=== PATIENT | female | born 1965 | race Caucasian/White ===

== ENCOUNTER 2016-04-05 13:07 | Day surgery (SDC) | payer OTHER ==
[~2016-04-05] VITALS: Ht 160 cm; Wt 77.1 kg
[~2016-04-05 13:07] MED LIST: 0.9% Sodium Chloride 1,000 ML IV SCH; Sodium Chloride LOK Flush 10 mL Syringe IV PRN; fentaNYL-PF 50 mCg/mL 2 mL Inj IVPUSH PRN
[2016-04-05 13:39] VITALS: BP 129/86; PULSE 59; RESP 16; O2SAT 98
[2016-04-05] MEDS ORDERED: IBUP-1827 PO (13:44)
[2016-04-05 16:20] VITALS: BP 110/63; PULSE 50; RESP 15; O2SAT 98
[2016-04-05 16:31] VITALS: BP 109/61; PULSE 48; RESP 15; O2SAT 98
--- NOTE | 2016-04-05 16:38 | ENDO ---
[address] [address] ENDOSCOPY PROCEDURE PATIENT: BLADIMIR GILMAN : 1965 MR#: [id number] ADMIT: 04/05/2016 JOB ID: [id number] PRIMARY PROVIDER: Steph Marroquin PA-C. PROCEDURE: Colonoscopy. INDICATIONS: A 50-year-old female reports for colon cancer screening. EQUIPMENT: PCF H180 AL. SEDATION: 4 mg Versed and 25 mcg fentanyl. COMPLICATIONS: None identified. BOWEL PREPARATION: Fair. PROCEDURE IN DETAIL: After the risks and benefits were explained, written and verbal informed consent was obtained. The patient was brought into the endoscopy suite and placed into the left lateral decubitus position. Sedation was achieved using the above-stated medications with the addition of oxygen via nasal cannula. A digital rectal examination was accomplished. No significant pathology appreciated. The scope was introduced into the rectum and advanced under direct visualization to the level of the cecum, as identified by the appendiceal orifice and ileocecal valve. The scope was slowly withdrawn to carefully examine the mucosa for any defects or lesions. Retroflexed views were avoided in the rectum. Multiple direct views were made through the dentate line for exclusion of pathology. The colon was decompressed, the scope removed the patient who tolerated the procedure well. FINDINGS: Copious amounts of irrigation and suction were required for an adequate mucosal exam. Within the limitations of bowel prep, I did not see any significant polyps, mass lesions, or inflammatory features identified throughout. ENDOSCOPIC DIAGNOSIS: Visually unremarkable colonoscopy to cecum. RECOMMENDATIONS: Repeat colonoscopy in 10 years' time, sooner should symptoms warrant.
[2016-04-05 16:41] VITALS: BP 123/73; PULSE 52; RESP 15; O2SAT 98
== END 2016-04-05 23:59 | disposition home or self-care (01) ==
LOC: END 13:07
PROVIDERS: ATTEND Internal Medicine Gastroenterology
DX: Z12.11 Encounter for screening for malignant neoplasm of colon (principal)
CPT/HCPCS: G0121; G0500; J2250; J3010; J7030